=== PATIENT | female | born 1990 | race American Indian/Alaskan Native ===

== ENCOUNTER 2018-08-15 10:41 | Emergency (ER) | payer SELFPAY ==
[2018-08-15 11:20] VITALS: BP 108/69
--- NOTE | 2018-08-15 11:53 | Emergency Department Report ---
ED ENT HPI - General Chief complaint: Earache Stated complaint: EAR PAIN/NAUSEA Source: patient Mode of arrival: Ambulatory Limitations: No Limitations - History of Present Illness Initial comments: This is a 27-year-old -[place] female who presents with bilateral ear pain, nausea, and dizziness for 1 month. Patient states her bleeding began and pain to lower E her starting 1 month ago and slowly increased over the past few days. Patient states itching started 3 months ago and nausea started last night. Patient states she works around to an have been experiencing clear rhinorrhea which she thought possibly was upper respiratory infection. Patient states she spoke with pharmacist at [facility] the [employer] until 2 used peroxide and water which she has to use for the past 2 weeks with no improvement of symptoms. Patient denies discharge from ears, fever, cough, chest pain, shortness of breath, and body aches. MD complaint: ear pain (bilateral) Onset/Timin -: month(s) Location: R ear, L ear Severity: moderate Severity scale (0 -10): 5 Quality: aching, other (itching) Consistency: constant Improves with: none Worsens with: none - Related Data Previous Rx's Medication Instructions Recorded Last Taken Type Carbamide Peroxide 6.5% [Ear Wax 300 drops TID #1 bottle 08/15/18 Unknown Rx Drops] Neomycin/Polymyxin B/Hydrocort 10 ml OT BID 5 Days #1 drops.susp 08/15/18 Unknown Rx [Riahcnes-Raljuxwqq-Fj Ear Susp] Ondansetron [Zofran Odt] 4 mg PO TID PRN #9 tab.rapdis 08/15/18 Unknown Rx Allergies Allergy/AdvReac Type Severity Reaction Status Date / Time No Known Allergies Allergy Unverified 08/15/18 11:23 ED Dental HPI - General Chief complaint: Earache Stated complaint: EAR PAIN/NAUSEA Source: patient Mode of arrival: Ambulatory Limitations: No Limitations - Related Data Previous Rx's Medication Instructions Recorded Last Taken Type Carbamide Peroxide 6.5% [Ear Wax 300 drops TID #1 bottle 08/15/18 Unknown Rx Drops] Neomycin/Polymyxin B/Hydrocort 10 ml OT BID 5 Days #1 drops.susp 08/15/18 Unknown Rx [Ojsabiyh-Smqpgbmeh-Yi Ear Susp] Ondansetron [Zofran Odt] 4 mg PO TID PRN #9 tab.rapdis 08/15/18 Unknown Rx Allergies Allergy/AdvReac Type Severity Reaction Status Date / Time No Known Allergies Allergy Unverified 08/15/18 11:23 ED Review of Systems ROS: Stated complaint: EAR PAIN/NAUSEA Other details as noted in HPI Constitutional: denies: chills, fever ENT: ear pain, congestion (clear rhinorrhea). denies: throat pain, dental pain , hearing loss, epistaxis Respiratory: denies: cough, shortness of breath, wheezing Cardiovascular: denies: chest pain, palpitations Gastrointestinal: denies: abdominal pain, nausea, diarrhea Skin: denies: rash, lesions Neurological: denies: headache, weakness, paresthesias Psychiatric: denies: anxiety, depression ED Past Medical Hx - Surgical History Past Surgical History?: Yes Additional Surgical History: pilonidal cyst removal x3, T&A - Social History Smoking Status: Former Smoker Substance Use Type: Alcohol - Medications Home Medications: Home Medications Medication Instructions Recorded Confirmed Last Taken Type Carbamide Peroxide 6.5% [Ear Wax 300 drops TID #1 bottle 08/15/18 Unknown Rx Drops] Neomycin/Polymyxin B/Hydrocort 10 ml OT BID 5 Days #1 drops.susp 08/15/18 Unknown Rx [Aahrttxi-Zckednhrp-Iq Ear Susp] Ondansetron [Zofran Odt] 4 mg PO TID PRN #9 tab.rapdis 08/15/18 Unknown Rx ED Physical Exam - General Limitations: No Limitations General appearance: alert, in no apparent distress - ENT ENT exam: Present: mucous membranes moist. Absent: TM's normal bilaterally ( cerumen impaction on the right), normal external ear exam (erythematous ear canal on the left, pain with tragus) - Neck Neck exam: Present: normal inspection - Respiratory Respiratory exam: Present: normal lung sounds bilaterally. Absent: respiratory distress - Cardiovascular Cardiovascular Exam: Present: regular rate, normal rhythm. Absent: systolic murmur, diastolic murmur, rubs, gallop - GI/Abdominal GI/Abdominal exam: Present: soft, normal bowel sounds - Neurological Exam Neurological exam: Present: alert, oriented X3 - Psychiatric Psychiatric exam: Present: normal affect, normal mood - Skin Skin exam: Present: warm, dry, intact, normal color. Absent: rash ED Course Vital Signs 08/15/18 08/15/18 11:09 11:20 Temperature 98.9 F 98.9 F Pulse Rate 50 L 50 L Respiratory 16 16 Rate Blood Pressure 108/69 Blood Pressure 108/69 [Right] O2 Sat by Pulse 99 99 Oximetry ED Medical Decision Making - Lab Data Lab Results 08/15/18 Range/Units 11:58 Urine HCG, Qual Negative (Negative) - Medical Decision Making Patient is stable and was examined by me. Vitals normal and patient has had no acute distress. A urine hCG obtained and negative. Physical assessment susceptible of serous otitis externa of left ear and cerumen impaction on the right. Start deborox, cortisporin gtts, zofran, Tylenol or ibuprofen for pain. Discussed plan with patient and she agreed with plan. Discharged home in stable condition. Follow up with PCP in 24-72 hours. Critical care attestation.: If time is entered above; I have spent that time in minutes in the direct care of this critically ill patient, excluding procedure time. ED Disposition Clinical Impression: Otalgia of both ears, Impacted cerumen of right ear, Tinnitus of left ear, Nausea alone Otitis externa Qualifiers: Otitis externa type: diffuse Chronicity: acute Laterality: left Qualified Code( s): H60.312 - Diffuse otitis externa, left ear Disposition: TO HOME OR SELFCARE Is pt being admited?: No Does the pt Need Aspirin: No Condition: Stable Instructions: Otitis Externa (ED), Cerumen Impaction (ED) Additional Instructions: Give Tylenol or ibuprofen for pain every 6-8 hours. Take antibiotics as prescribed to avoid recurrence of the ear infection. Avoid high altitudes, may worsen the pain during ear infection. If symptoms do not improve within 2 to 3 days, then follow up with Supervising Bailiff. Prescriptions: Carbamide Peroxide 6.5% [Ear Wax Drops] 300 drops TID #1 bottle Neomycin/Polymyxin B/Hydrocort [Btwlbdpv-Uybayamsq-Uk Ear Susp] 10 ml OT BID 5 Days #1 drops.susp Ondansetron [Zofran Odt] 4 mg PO TID PRN #9 tab.rapdis PRN Reason: Nausea And Vomiting Referrals: [facility] [Outside] - 3-5 Days [facility] [Outside] - 3-5 Days [facility] [Outside] - 3-5 Days Time of Disposition: 12:35 Print Language: KINYARWANDA
[2018-08-15 12:23] LABS: HCG Qualitative,Urine Negative (Negative)
== END 2018-08-15 12:49 | disposition home or self-care (01) ==
LOC: ED 10:41
DX: H60.312 Diffuse otitis externa, left ear (principal); H93.12 Tinnitus, left ear; H61.21 Impacted cerumen, right ear; R11.0 Nausea
CPT/HCPCS: 81025; 99283